=== PATIENT | female | born 1955 | race Hispanic/Latino ===

== ENCOUNTER → 2024-10-25 | Outpatient (RCR) | payer OTHER ==
[~2024-10-25] MED LIST: COLLAGENASE OINTMENT 30 GM TUBE ONE; LIDOCAINE VISC 2% SOLN 15 ML UDC ONE; LIDOCAINE/PRILOCAINE 2.5-2.5% KIT ONE
== END ==
LOC: EDSTATUS 10:48 → WCC 16:35
PROVIDERS: ATTEND Internal Medicine Infectious Disease
DX: S81.802D Unspecified open wound, left lower leg, subsequent encounter (principal)

== ENCOUNTER 2024-11-08 14:43 | Outpatient (RCR) | payer OTHER | END 2024-11-25 | LOC: WCC 14:43 | PROVIDERS: ATTEND Nurse Practitioner Family | DX: S81.802D Unspecified open wound, left lower leg, subsequent encounter (principal); L95.9 Vasculitis limited to the skin, unspecified ==